=== PATIENT | male | born 1995 | race Caucasian/White ===

== ENCOUNTER 2016-07-16 17:14 | Emergency (ER) | payer OTHER ==
[2016-07-16 17:19] VITALS: BMI 25.0
--- NOTE | 2016-07-16 18:44 | PDOC ---
History of Present Illness - General Chief Complaint: Chest Pain Stated Complaint: CHEST PAIN Time Seen by Provider: 07/16/16 18:19 History Source: Patient Exam Limitations: No Limitations - History of Present Illness Initial Comments: 07/16/16 18:44 CHIEF COMPLAINT: Chest pain HISTORY OF PRESENT ILLNESS: This is an otherwise healthy 21 year old male who presents ambulatory to he ED accompanied by his aunt and uncle complaining of chest pain. He reports that the pain started about 30 minutes prior to arrival, just after eating a bowl of pasta with chicken. The pain is located in the left chest and is sharp in character. It lasted about 5 minutes, abated, and occurred two more times. He had some associated palpitations and shortness of breath. All symptoms have resolved. He denies cough, fevers/chills, calf pain, or any other symptoms. Patient is not a smoker. He denies recent travel/trauma/surgery, testosterone use, and family/personal history of hypercoaguability. V/s on arrival are notable for P 119. REVIEW OF SYSTEMS: GENERAL/CONSTITUTIONAL: No fever or chills. No weakness. No weight change. HEAD, EYES, EARS, NOSE AND THROAT: No change in vision. No ear pain or discharge. No sore throat. CARDIOVASCULAR: See HPI. RESPIRATORY: No cough, wheezing, or shortness of breath. GASTROINTESTINAL: No nausea, vomiting, diarrhea or constipation. GENITOURINARY: No dysuria, frequency, or change in urination. MUSCULOSKELETAL: No joint or muscle swelling or pain. No neck or back pain. SKIN: No rash or easy bruising. NEUROLOGIC: No headache, vertigo, loss of consciousness, or loss of sensation. PSYCHIATRIC: No depression or anxiety. ENDOCRINE: No increased thirst. No abnormal weight change. HEMATOLOGIC/LYMPHATIC: No anemia, easy bleeding, or history of blood clots. ALLERGIC/IMMUNOLOGIC: No hives or skin allergy. No latex allergy. PHYSICAL EXAM: GENERAL: The patient is awake, alert, and fully oriented, in no acute distress. HEAD: Normal with no signs of trauma. ENT: Pupils equal, round and reactive to light, extraocular movements intact, sclera anicteric, conjunctiva clear. Neck supple. LUNGS: Clear to auscultation bilaterally. Normal excursion. No respiratory distress or use of accessory muscles. CV: RRR, S1/S2, no MRG. Cap refill < 2 sec. ABDOMEN: Soft, non-distended, non-tender. EXTREMITIES: Normal range of motion, no edema. NEUROLOGICAL: Normal speech, normal gait. CN II-XII grossly intact. PSYCH: Normal mood, normal affect. SKIN: Warm, dry, normal turgor, no rashes or lesions noted. Past History - Past Medical History Allergies/Adverse Reactions: Allergies Allergy/AdvReac Type Severity Reaction Status Date / Time amoxicillin Allergy Verified 07/16/16 17:17 Home Medications: Ambulatory Orders NK [No Known Home Medication] 07/16/16 - Psycho/Social/Smoking Cessation Hx Anxiety: No Suicidal Ideation: No Smoking History: Never smoked Have you smoked in the past 12 months: No Information on smoking cessation initiated: No Hx Alcohol Use: No Drug/Substance Use Hx: No Substance Use Type: None *Physical Exam - Vital Signs Last Vital Signs Temp Pulse Resp BP Pulse Ox 97.6 F 100 H 18 142/83 98 07/16/16 17:17 07/16/16 18:31 07/16/16 18:31 07/16/16 18:31 07/16/16 18:31 Heart Score/ECG Review - ECG Intrepretation Comment:: 07/16/16 20:51 NSr at 95bpm, no ST or T wave changes - P and [facility] Comment:: 07/16/16 18:45 NSR at 95bpm ED Treatment Course - LABORATORY CBC & Chemistry Diagram: 07/16/16 16:55 07/16/16 16:55 - RADIOLOGY Radiology Studies Ordered: Category Date Time Status CHEST PA & LAT [RAD] Stat Radiology 07/16/16 18:19 Ordered Medical Decision Making - Medical Decision Making 07/16/16 20:50 A/P: 21 year old male with chest pain. 1. EKG 2. Basic labs + d-dimer 3. CXR 4. Re-assess 07/16/16 20:52 Labs notable for WBC 16.6 with 87.8% neutrophils. D-dimer <200. 07/16/16 22:00 Patient is asking to be discharged prior to CXR result. Pain has not recurred. Agrees to follow up with PCP on Tuesday for repeat labs. Return precautions reviewed. *DC/Admit/Observation/Transfer Diagnosis at time of Disposition: Atypical chest pain - Discharge Dispostion Disposition: HOME Admit: No - Referrals Referrals: Maximus Maldonado MD [Staff Physician] - - Patient Instructions Printed Discharge Instructions: DI for Atypical Chest Pain Additional Instructions: You were seen today for chest pain. Your white blood cell count is elevated and needs to be followed up with your doctor on Tuesday. If you are unable to see your doctor, return here. You elected not to wait for the results of your chest xray. Please call tomorrow after 9am for the result. Return here for worsening pain, difficulty breathing, or any other concerning symptoms.
[2016-07-16 18:58] LABS: BASOPHIL 0.3 % (0-2.0); EOSINOPHIL 0.4 % (0-4.5); MCHC 33.1 g/dl (32.0-35.9); MEAN CELL VOLUME 84.6 fl (80-96); MEAN PLT VOLUME 8.1 fl (7.5-11.1); NEUTROPHILS 87.8 % (42.8-82.8); PLATELET COUNT 214 K/MM3 (134-434); RDW 12.9 % (11.9-15.9); WHITE BLOOD COUNT 16.6 K/mm3 (4.0-10.0)
--- NOTE | 2016-07-16 19:03 | PDOC ---
*Physical Exam - Vital Signs Last Vital Signs Temp Pulse Resp BP Pulse Ox 97.6 F 100 H 18 142/83 98 07/16/16 17:17 07/16/16 18:31 07/16/16 18:31 07/16/16 18:31 07/16/16 18:31 - Physical Exam Comments: 07/16/16 19:03 The patient was examined by [[facility]] under my direct supervision. I personally evaluated the patient. I concur with the above findings and the plan of care. ED Treatment Course - LABORATORY CBC & Chemistry Diagram: 07/16/16 16:55 07/16/16 16:55 *DC/Admit/Observation/Transfer Diagnosis at time of Disposition: Atypical chest pain - Discharge Dispostion Disposition: HOME - Referrals Referrals: Maximus Maldonado MD [Staff Physician] - - Patient Instructions Printed Discharge Instructions: DI for Atypical Chest Pain Additional Instructions: You were seen today for chest pain. Your white blood cell count is elevated and needs to be followed up with your doctor on Tuesday. If you are unable to see your doctor, return here. You elected not to wait for the results of your chest xray. Please call tomorrow after 9am for the result. Return here for worsening pain, difficulty breathing, or any other concerning symptoms.
[2016-07-16 19:34] LABS: ALBUMIN 4.4 g/dl (3.4-5.0); ANION GAP 7 (8-16); BILIRUBIN,TOTAL 1.1 mg/dL (0.2-1.0); CALCIUM 9.7 mg/dL (8.5-10.1); CO2 30 mmol/L (21-32); COCKROFT - GAULT 113.39; GLUCOSE,RANDOM 112 mg/dL (74-106); MAGNESIUM 2.1 mg/dL (1.8-2.4); SGOT/AST 15 U/L (15-37); SGPT/ALT 18 U/L (12-78); TOT PROT 7.5 g/dl (6.4-8.2)
[2016-07-16 19:42] LABS: ALK PHOS 53 U/L (45-117); THYROID STIMULATING HORMONE 1.26 uIU/ml (0.358-3.74)
[2016-07-16 20:54] VITALS: BP 121/73; PULSE 97; TEMP 98.9
--- NOTE | 2016-07-17 09:17 | EKG ---
Test Reason : Blood Pressure : / mmHG Vent. Rate : 095 BPM Atrial Rate : 095 BPM P-R Int : 130 ms QRS Dur : 068 ms QT Int : 316 ms P-R-T Axes : 076 046 043 degrees QTc Int : 397 ms NORMAL SINUS RHYTHM NORMAL ECG NO PREVIOUS ECGS AVAILABLE Confirmed by YOSELIN HERNANDEZ MD ([id number]) on 07/17/2016 9:17:06 AM Referred By: Confirmed By:YOSELIN HERNANDEZ MD
== END 2016-07-16 22:05 | disposition home or self-care (01) ==
LOC: JER 17:14
DX: R07.89 Other chest pain (principal)
CPT/HCPCS: 36415; 71020-TC; 80053; 83735; 84443; 85025; 85379; 93005; 93010; 99283-25